=== PATIENT | female | born 1955 | race Caucasian/White ===

== ENCOUNTER 2018-03-10 18:01 | Emergency (ER) | payer OTHER ==
[2018-03-10] MEDS ORDERED: ALBUTEROL NEB 2.5 MG/3 ML INH STA (19:23)
[2018-03-10] MEDS ORDERED: predniSONE 20 MG TABLET PO STA (19:23)
--- NOTE | 2018-03-10 19:26 | ED Physician Documentation ---
History of Present Illness - Stated complaint Stated Complaint: SOA - Chief complaint Chief Complaint: Resp - History obtained from History obtained from: Patient, Family - History of Present Illness Timing: Today Pain level max: 0 Pain level now: 0 - Additonal information Additional information: Patient is a 62-year-old female who recently moved here from [facility] who states she ran out of her inhaler. Was exposed to airborne particles today, possibly mold that set off an asthma attack. Has not taken anything. No fevers. No chills. Nothing makes it better or worse Review of Systems Constitutional: denies: Fever, Chills Throat: denies: Sore throat Cardiac: denies: Chest pain / pressure Respiratory: reports: Cough (dry), Wheezing. denies: Hemoptysis GI: denies: Abdominal Pain, Nausea, Vomiting Skin: denies: Rash Musculoskeletal: denies: Neck pain, Back pain Neurologic: denies: Headache PD PAST MEDICAL HISTORY - Past Medical History Past Medical History: Yes Respiratory: Asthma - Present Medications Home Medications: Ambulatory Orders Medication Instructions Recorded Confirmed Albuterol Sulf [Ventolin Hfa 1 - 2 puffs INH Q4HR PRN #1 inhaler 03/10/18 Inhaler] Gabapentin PO DAILY PM 03/10/18 - Allergies Allergies/Adverse Reactions: Allergies Allergy/AdvReac Type Severity Reaction Status Date / Time bacitracin Allergy Rash Verified 03/10/18 18:17 [From Neosporin ([id number])] neomycin Allergy Rash Verified 03/10/18 18:17 [From Neosporin ([id number])] polymyxin B Allergy Rash Verified 03/10/18 18:17 [From Neosporin ([id number])] - Living Situation Living Situation: reports: With family Living Arrangement: reports: At home - Social History Does the pt smoke?: No Does the pt have substance abuse?: No - Family History Family history: reports: Non contributory PD ED PE NORMAL - Vitals Vital signs reviewed: Yes - General General: Alert and oriented X 3, No acute distress, Well developed/nourished - HEENT HEENT: PERRL, Moist mucous membranes - Neck Neck: Supple, no meningeal sign - Cardiac Cardiac: RRR - Respiratory Respiratory: No respiratory distress, Other (Mild wheeze bilaterally) - Abdomen Abdomen: Soft, Non tender, Non distended - Derm Derm: Warm and dry - Neuro Neuro: Alert and oriented X 3 - Psych Psych: Normal mood, Normal affect Results - Vitals Vitals: Vital Signs - 24 hr 03/10/1818 03/10/18 18:14 19:33 19:34 Temperature 36.8 C Heart Rate 73 63 65 Respiratory 18 18 18 Rate Blood Pressure 107/72 111/66 O2 Saturation 100 100 Oxygen O2 Source Room air PD MEDICAL DECISION MAKING - ED course Complexity details: re-evaluated patient, considered differential, d/w patient, d/w family ED course: Patient is a 62-year-old female with what appears to be an asthma exacerbation. Feels better after nebulizer treatment and steroids. No respiratory distress. No hypoxia. Will place on albuterol for home and follow-up closely with her doctor. Patient counseled regarding signs and symptoms for which I believe and urgent re-evaluation would be necessary. Patient with good understanding of and agreement to plan and is comfortable going home at this time This document was made in part using voice recognition software. While efforts are made to proofread this document, sound alike and grammatical errors may occur. - Sepsis Event Vital Signs: Vital Signs - 24 hr 03/10/18 03/10/18 03/10/18 18:14 19:33 19:34 Temperature 36.8 C Heart Rate 73 63 65 Respiratory 18 18 18 Rate Blood Pressure 107/72 111/66 O2 Saturation 100 100 Oxygen O2 Source Room air Departure - Departure Disposition: 01 Home, Self Care Clinical Impression: Asthma exacerbation Qualifiers: Asthma severity: unspecified severity Asthma persistence: intermittent Qualified Code(s): J45.21 - Mild intermittent asthma with (acute) exacerbation Condition: Good Instructions: ED Reactive Airway Disease Follow-Up: your,doctor in 1 week [Other] Prescriptions: Albuterol Sulf [Ventolin Hfa Inhaler] 1 - 2 puffs INH Q4HR PRN #1 inhaler PRN Reason: Shortness Of Air/Wheezing Comments: Return if you worsen. Discharge Date/Time: 03/10/18 19:51
[2018-03-10 19:35] VITALS: BP 111/66
== END 2018-03-10 19:51 | disposition home or self-care (01) ==
LOC: ED 18:01
DX: J45.21 Mild intermittent asthma with (acute) exacerbation (principal)
CPT/HCPCS: 94640; 94664; 99283; J7512

== ENCOUNTER 2018-06-02 13:48 | Outpatient (CLI) | payer OTHER ==
--- NOTE | 2018-06-04 00:37 | XRAY Report ---
Reason: L FOREARM DOG BITE Procedure Date: 06/02/2018 Accession Number: [id number] / [id number] Procedure: XR - Forearm LT CPT Code: FULL RESULT: EXAM: LEFT FOREARM RADIOGRAPHY EXAM DATE: 06/02/2018 02:06 PM. CLINICAL HISTORY: Left forearm dog bite. COMPARISON: None. TECHNIQUE: 2 views. FINDINGS: Bones: Normal. No fractures or bone lesions. Joints: Normal. No effusions or subluxations in the visualized wrist or elbow joints. Soft Tissues: No foreign body seen. No soft tissue swelling. IMPRESSION: No left forearm fracture or foreign body seen. [facility]
== END 2018-06-02 13:49 | disposition home or self-care (01) ==
LOC: DI 13:48
PROVIDERS: ATTEND Specialist
DX: S51.852A Open bite of left forearm, initial encounter (principal)